=== PATIENT | female | born 1995 | race Caucasian/White ===

== ENCOUNTER 2018-04-30 06:07 | Emergency (ER) | payer BC ==
[~2018-04-30 06:07] MED LIST: LEVO500T47 PO; MONT10TA6 PO; PRED20TA PO; [UNRECOGNIZED DRUG - OTHER]; [UNRECOGNIZED DRUG - OTHER] PO
--- NOTE | 2018-04-30 06:25 | NUR ---
PT IN GOWN IN [facility]; DR. JENSEN AT . PT ATTACHED TO VS MACHINES. VSS. PT EDUCATED ON ER PROCESS AND POC AND VERBALIZES UNDERSTANDING. CALL LIGHT IS WITHIN REACH. AWAITING ORDERS AT THIS TIME.
[2018-04-30 06:53] LABS: HCG UR SG 1.014 (1.003-1.030); MICROSCOPIC NOT IND
[2018-04-30 06:57] LABS: CULTURE INDICATED? NO
[2018-04-30 07:00] LABS: BASOPHILS # (AUTO) 0.02 x10^3/uL (0-0.1); BASOPHILS % (AUTO) 0 % (0-1); EOSINOPHILS % (AUTO) 0 % (1-7); LYMPHOCYTES # (AUTO) 0.65 x10^3/uL (1-3.4); LYMPHOCYTES % (AUTO) 6 % (22-44); MD NO; MEAN CORPUSCULAR HEMOGLOBIN 30.9 pg (27.0-34.8); MEAN CORPUSCULAR HGB CONC 34.3 g/dL (32.4-35.8); MEAN CORPUSCULAR VOLUME 89.9 fL (80-100); MEAN PLATELET VOLUME 8.7 fL (7.4-10.4); MONOCYTES # (AUTO) 0.82 x10^3/uL (0.2-0.8); MONOCYTES % (AUTO) 8 % (2-9); NEUTROPHILS % (AUTO) 86 % (42-75); PLATELET COUNT 257 x10^3/uL (130-400); RED BLOOD COUNT 4.14 x10^6/uL (3.82-5.3); RED CELL DISTRIBUTION WIDTH 14.3 % (9.6-15.2)
[2018-04-30] MEDS ORDERED: KETOROLAC 30 MG/1 ML ONE (07:00)
[2018-04-30] MEDS ORDERED: SODIUM CHLORIDE 0.9% 1,000ML IVBOLUS ONE (07:00)
[2018-04-30] MEDS ORDERED: KETOROLAC 30 MG/1 ML IVPush ONE (07:00)
--- NOTE | 2018-04-30 07:03 | NUR ---
REPORT OF PT TO DARNELL SWARTZ.
[2018-04-30 07:12] LABS: ALANINE AMINOTRANSFERASE 13 U/L (12-78); ALBUMIN 3.4 g/dL (3.4-5.0); ANION GAP 6 mmol/L (5-15); CALCIUM 8.4 mg/dL (8.5-10.1); CHLORIDE 107 mmol/L (98-107); CREATININE 0.87 mg/dL (0.55-1.02)
[2018-04-30 07:13] LABS: BILIRUBIN, DIRECT < 0.1 mg/dL (0.1-0.2)
[2018-04-30 07:15] LABS: ALKALINE PHOSPHATASE 82 U/L (45-117); BILIRUBIN,INDIRECT 0.2 mg/dL (0.0-2.0); BILIRUBIN,TOTAL 0.3 mg/dL (0.2-1.0); TOTAL PROTEIN 6.6 g/dL (6.4-8.2)
--- NOTE | 2018-04-30 07:27 | NUR ---
RECEIVED REPORT AND ASSUMED PT. CARE. IV ACCESS WAS ESTABLISHED AND PT. WAS MEDICATED FOR PAIN. PT.'S NS BOLUS IS INFUSING. PT. REMAINS PINK, WARM AND DRY. LUNGS ARE CTA. MM ARE PINK AND MOIST WITH PULSES +2 THROUGHOUT. PT. IS RESTING AT THIS TIME. PT. WAS GIVEN A BLANKET FOR WARMTH.
--- NOTE | 2018-04-30 08:30 | NUR ---
PT. IS RECEIVING HER BEDSIDE ULTRASOUND AT THIS TIME.
--- NOTE | 2018-04-30 09:15 | NUR ---
PT. WAS GIVEN DISCHARGE INSTRUCTIONS AND A SCRIPT. UNDERSTANDING WAS VERBALIZED ALONG WITH WILLINGNESS TO COMPLY. PT. WAS AMBULATORY TO THE DISCHARGE DESK. VSS. PT.'S IV WAS DCD, CATH TIP INTACT. PRESSURE HELD WITH HEMOSTASIS ACHIEVED.
[2018-04-30 09:16] VITALS: BP 106/56
== END 2018-04-30 09:19 | disposition home or self-care (01) ==
LOC: ED 07:53
DX: M54.5 Low back pain (principal); R10.11 Right upper quadrant pain; R10.31 Right lower quadrant pain; R10.33 Periumbilical pain; R30.0 Dysuria; Z79.899 Other long term (current) drug therapy
CPT/HCPCS: 36415; 76700; 80048; 80076; 81003; 81025; 82040; 83605; 83690; 85025; 96374; 99284; J1885; J7030

== ENCOUNTER 2019-08-11 19:43 | Emergency (ER) | payer SELFPAY ==
[~2019-08-11] VITALS: Ht 165.1 cm; Wt 66.0 kg
[2019-08-11 19:59] VITALS: BP 107/77
[2019-08-11] MEDS ORDERED: ACETAMINOPHEN 500 MG TABLET PO ONE (21:30)
[2019-08-11] MEDS ORDERED: KETOROLAC 30 MG/1 ML IM ONE (21:30)
== END 2019-08-11 22:57 | disposition home or self-care (01) ==
LOC: ED 21:40
DX: S16.1XXA Strain of muscle, fascia and tendon at neck level, initial encounter (principal); S29.012A Strain of muscle and tendon of back wall of thorax, initial encounter; F17.210 Nicotine dependence, cigarettes, uncomplicated; J45.902 Unspecified asthma with status asthmaticus; V49.49XA Driver injured in collision with other motor vehicles in traffic accident, initial encounter; W22.10XA Striking against or struck by unspecified automobile airbag, initial encounter; Y93.89 Activity, other specified; Y92.89 Other specified places as the place of occurrence of the external cause; Y99.8 Other external cause status
CPT/HCPCS: 72020; 72050; 72072; 94640; 99284; 99406

== ENCOUNTER 2020-08-25 05:07 | Emergency (ER) | payer SELFPAY ==
[~2020-08-25] VITALS: Ht 165.1 cm; Wt 64.0 kg
[2020-08-25 05:09] VITALS: BP 110/73
--- NOTE | 2020-08-25 05:19 | NUR ---
PT PRESENTS TO THE ED WITH TOOTH PAIN. PT STATES THE PAIN STARED EARLIER TODAY. PT BELIEVES SHE HAS AN ABCESS ON THE UPPER LEFT SIDE OF MOUTH. PT IS TEARFUL AND RESTING ON GURNEY
[2020-08-25] MEDS ORDERED: IBUPROFEN 200 MG TABLET ONE (05:40)
[2020-08-25] MEDS ORDERED: HYDROcodone/APAP 5/325 TABLET ONE (05:40)
--- NOTE | 2020-08-25 05:44 | NUR ---
PT GIVEN MEDICATIONS.
[2020-08-25] MEDS ORDERED: HYDROcodone/APAP 5/325 TABLET PO ONE (06:00)
[2020-08-25] MEDS ORDERED: IBUPROFEN 200 MG TABLET PO ONE (06:00)
--- NOTE | 2020-08-25 06:11 | NUR ---
Patient given discharge instructions and they have confirmed that they understand the instructions. Patient ambulatory with steady gait.
== END 2020-08-25 06:14 | disposition home or self-care (01) ==
LOC: ED 06:08
DX: K08.89 Other specified disorders of teeth and supporting structures (principal)
CPT/HCPCS: 99283

== ENCOUNTER 2020-08-31 03:33 | Emergency (ER) | payer OTHER ==
[~2020-08-31] VITALS: Ht 165.1 cm; Wt 64.0 kg
[2020-08-31 03:34] VITALS: BP 141/71
[2020-08-31] MEDS ORDERED: ACETAMINOPHEN 500 MG TABLET ONE (03:51)
--- NOTE | 2020-08-31 03:52 | NUR ---
PT C/O OF LEFT SIDED ABSCESS. PT REPORTS COMING INTO ER LAST WEEK AND THEY GAVE HER PENICILLIN AND IBUPROFEN AND WAS EDUCATED ON GETTING AN APPOINTMENT WITH THE DENTIST. PT STATES THE ABSCESS IS GETTING MORE SWOLLEN AND THE PAIN HASNT GONE AWAY. PT ATTACHED TO MONITORS, VSS, NADN BED IN LOW POSITION, RAILS ENGAGED, CALL LIGHT ON LAP. WCTM.
[2020-08-31] MEDS ORDERED: ACETAMINOPHEN 500 MG TABLET PO ONE (04:00)
== END 2020-08-31 04:05 | disposition home or self-care (01) ==
LOC: ED 03:46
DX: K02.9 Dental caries, unspecified (principal); Z88.0 Allergy status to penicillin
CPT/HCPCS: 99282